=== PATIENT | male | born 1965 | race Caucasian/White ===

== ENCOUNTER → 2016-08-17 | Emergency (ER) | payer MEDICARE, MEDICAID ==
[~2016-08-17] VITALS: Ht 170.2 cm; Wt 72.6 kg
[~2016-08-17] MED LIST: diphenhydrAMINE HCL 25 MG CAPSULE ONE; predniSONE 20 MG TABLET ONE
[2016-08-17 10:09] VITALS: BP 134/77
[2016-08-17] MEDS: diphenhydrAMINE HCL 25 MG CAPSULE PO ONE (10:32)
[2016-08-17] MEDS: predniSONE 20 MG TABLET PO ONE (10:32)
== END | disposition home or self-care (01) ==
LOC: ER 09:56
DX: R21 Rash and other nonspecific skin eruption (principal); M32.9 Systemic lupus erythematosus, unspecified; G47.30 Sleep apnea, unspecified; Z88.0 Allergy status to penicillin; Z59.0 Homelessness
CPT/HCPCS: A4606; Q0163; Z7610